=== PATIENT | male | born 2000 | race Hispanic/Latino ===

== ENCOUNTER 2020-12-26 12:08 | Emergency (ER) | payer OTHER ==
[2020-12-26 12:30] VITALS: BP 140/74; PULSE 60; O2SAT 100
[2020-12-26] MEDS ORDERED: Kenalog-40 IM ONE (12:44)
--- NOTE | 2020-12-26 12:53 | ERPHSYRPT ---
- History of Present Illness Time Seen by Provider: 12/26/20 12:16 Source: patient Exam Limitations: no limitations Patient Subjective Stated Complaint: . Triage Nursing Assessment: . Physician History: 20-year-old presented in the ER with chief complaint of rash on the both upper arms/hands, anterior chest and some on the face with some burning sensation and itching. Also having itching burning sensation in the eyes patient works as a forestry tree pruner and it had similar symptoms in the past with poison ruth. This has been going on for a week and progressively worsening. Denies any sore throat or difficulty breathing no fever or chills reported I have been using [id number] medication with no significant relief Timing/Duration: week(s) (1), constant, gradual onset, worse Quality: burning, itchy Severity: moderate Location: face, torso, hands, extremities Possible Causes: poison ruth Modifying Factors: Improves With: topical steriods. Worsens With: scratching Associated Symptoms: rash, No blisters, No difficulty breathing, No edema, No flushing, No headache, No hives, No nasal congestion, No paresthesia, No sore throat, No swelling/mass/lumps Allergies/Adverse Reactions: poison ruth extract Allergy (Verified 12/26/20 12:31) Rash poison oak extract Allergy (Verified 12/26/20 12:31) Rash poison sumac extract Allergy (Verified 12/26/20 12:31) Rash Hx Tetanus, Diphtheria Vaccination/Date Given: Yes Hx Influenza Vaccination/Date Given: Yes Hx Pneumococcal Vaccination/Date Given: No Immunizations Up to Date: Yes Travel Risk - International Travel Have you traveled outside of the country in past 3 weeks: No - Coronavirus Screening Are you exhibiting any of the following symptoms?: No Close contact with a COVID-19 positive Pt in past 14-21 Days: No - Vaccine Status Have you recieved a Covid-19 vaccination: No - Review of Systems Constitutional: No Symptoms Eyes: Itchy Ears, Nose, & Throat: No Symptoms Respiratory: No Symptoms Cardiac: No Symptoms Abdominal/Gastrointestinal: No Symptoms Genitourinary Symptoms: No Symptoms Musculoskeletal: No Symptoms Skin: Pruritis, Rash Neurological: No Symptoms Psychological: No Symptoms Immunological/Allergic: No Symptoms - Past Medical History Pertinent Past Medical History: Yes Respiratory History: Asthma Psycho-Social History: Bipolar, Depression Other Medical History: ADHD - Past Surgical History Past Surgical History: Yes Other Surgical History: wisdom teeth, heart surgery as - no issues since - Social History Smoking Status: Never smoker Exposure to second hand smoke: No Drug Use: none Patient Lives Alone: No - Nursing Vital Signs Nursing Vital Signs: Initial Vital Signs Temperature 98.7 F 12/26/20 12:24 Pulse Rate 60 12/26/20 12:24 Respiratory Rate 18 12/26/20 12:24 Blood Pressure 140/74 12/26/20 12:24 O2 Sat by Pulse Oximetry 100 12/26/20 12:24 Pain Scale Pain Intensity 0 - Physical Exam General Appearance: no apparent distress, alert Eye Exam: PERRL/EOMI, eyes nml inspection Ears, Nose, Throat Exam: normal ENT inspection, pharynx normal Neck Exam: normal inspection, non-tender, supple, full range of motion Respiratory Exam: normal breath sounds, lungs clear Cardiovascular Exam: regular rate/rhythm, normal heart sounds Extremity Exam: normal range of motion, tenderness Neurologic Exam: alert, oriented x 3, cooperative Skin Exam: normal color, rash (Multiple papular rash with few vesicles anterior forearms, anterior abdomen and few papules on the face/hands with itch acevedo.) SpO2: 100 Ordered Tests: Medication Summary Generic Name Dose Route Start Last Admin Trade Name Freq PRN Reason Stop Dose Admin Triamcinolone Acetonide 40 mg 12/26/20 12:44 Kenalog-40 IM 12/26/20 12:45 1XONLY ONE - Progress Progress: unchanged Progress Note: 12/26/20 12:47 Patient has been given Kenalog shot in here and will continue with topical steroids to go home along with calamine lotion. Outpatient follow-up recommended. Counseled pt/family regarding: diagnosis, need for follow-up - Departure Departure Disposition: Home Clinical Impression: Plant allergic contact dermatitis Condition: Stable Critical Care Time: No Referrals: BONILLA MCINTOSH MD [ACTIVE STAFF] - Follow Up with PCP/3 days Instructions: Poison Ruth, Poison [place], Poison [place] (DC) Additional Instructions: Follow-up with primary care physician for reevaluation. Use protective clothing's while in contact with plants. Return to ER for worsening rash or if to have difficulty breathing/swallowing/fever chills etc. Prescriptions: Betamet Diprop/Prop Gly [Betamethasone Dp Aug 0.05% Oin] 1 gm TP TID 7 Days #45 g
[2020-12-26] MEDS ORDERED: Kenalog-40 ONE (13:09)
== END 2020-12-26 14:00 | disposition home or self-care (01) ==
LOC: ED 12:08
DX: L23.9 Allergic contact dermatitis, unspecified cause (principal)
CPT/HCPCS: 96372; 99283; J3301

== ENCOUNTER 2021-04-24 14:48 | Emergency (ER) | payer OTHER ==
[2021-04-24 16:20] VITALS: O2SAT 98
--- NOTE | 2021-04-24 16:20 | ERPHSYRPT ---
- History of Present Illness Time Seen by Provider: 04/24/21 14:55 Source: patient Exam Limitations: no limitations Patient Subjective Stated Complaint: Pt cut right forearm on a nail or some wood that was hanging on the wall Triage Nursing Assessment: Pt brought self to the ER, vitals wnl, denies pain, 2cm laceration to right forearm, no bleeding, no other injuries Physician History: 20 years old healthy male presented in the ER with chief complaint of laceration right forearm from possibly hanging nail on the wall causing a superficial cut and the 1.25 cm laceration in the volar aspect of right forearm. Minimal dull aching pain. No bleeding or discharge. Nose swelling around. No injury anywhere else. Up-to-date with immunizations. Timing/Duration: today, constant, sudden, improved Quality: painful Severity: mild Location: extremities Associated Symptoms: denies symptoms Allergies/Adverse Reactions: poison anna extract Allergy (Verified 04/24/21 15:16) Rash poison oak extract Allergy (Verified 04/24/21 15:16) Rash poison sumac extract Allergy (Verified 04/24/21 15:16) Rash Home Medications: Amphetamine Sulfate [Evekeo Odt] 20 mg PO BID 04/24/21 [History] Hx Tetanus, Diphtheria Vaccination/Date Given: Yes Hx Influenza Vaccination/Date Given: Yes Hx Pneumococcal Vaccination/Date Given: No Immunizations Up to Date: Yes Travel Risk - International Travel Have you traveled outside of the country in past 3 weeks: No - Coronavirus Screening Are you exhibiting any of the following symptoms?: No Close contact with a COVID-19 positive Pt in past 14-21 Days: No - Vaccine Status Have you recieved a Covid-19 vaccination: No - Review of Systems Constitutional: No Symptoms Ears, Nose, & Throat: No Symptoms Respiratory: No Symptoms Cardiac: No Symptoms Abdominal/Gastrointestinal: No Symptoms Musculoskeletal: Injury Skin: Skin Lesions Neurological: No Symptoms Psychological: No Symptoms Endocrine: No Symptoms Hematologic/Lymphatic: No Symptoms Immunological/Allergic: No Symptoms - Past Medical History Pertinent Past Medical History: Yes Respiratory History: Asthma Psycho-Social History: Bipolar, Depression Other Medical History: ADHD - Past Surgical History Past Surgical History: Yes Other Surgical History: wisdom teeth, heart surgery as - no issues since - Social History Smoking Status: Never smoker Exposure to second hand smoke: No Drug Use: none Patient Lives Alone: No - Nursing Vital Signs Nursing Vital Signs: Initial Vital Signs Temperature 98.7 F 04/24/21 15:06 Pain Scale Pain Intensity 0 - Physical Exam General Appearance: no apparent distress Eye Exam: PERRL/EOMI Neck Exam: normal inspection, full range of motion Respiratory Exam: normal breath sounds, lungs clear Cardiovascular Exam: regular rate/rhythm, normal heart sounds Extremity Exam: other (Superficial cut linear right forearm from upper third lower third with 1.2 cm superficial laceration in the middle without active bleeding/spurting/oozing. Minimal tenderness.) Neurologic Exam: alert, oriented x 3, cooperative Skin Exam: normal color SpO2 Interpretation: normal SpO2: 98 O2 Delivery: Room Air Procedures - Laceration/Wound Repair Right Volar Arm Time of Procedure: 16:01 Wound Location: Right Wound Length (cm): 1.25 Wound's Depth, Shape: superficial, linear Wound Explored: clean Irrigated: Yes Hibiclens Prep: Yes Anesthesia: 1% Lidocaine Volume Anesthetic (ccs): 2 Wound Repaired With: sutures Suture Size/Type: 4-0, prolene Number of Sutures: 3 Sterile Dressing Applied?: Yes - Progress Progress: improved Progress Note: 04/24/21 16:19 Laceration is repaired. Recommend Tylenol ibuprofen. Discussed signs symptoms of infection needing return to ER which he seems understanding. Stable for discharge. Counseled pt/family regarding: diagnosis, need for follow-up - Departure Departure Disposition: Home Clinical Impression: Forearm laceration Qualifiers: Encounter type: initial encounter Laterality: right Qualified Code(s): S51.811A - Laceration without foreign body of right forearm, initial encounter Condition: Stable Critical Care Time: No Referrals: RAZIA SUAREZ DO [Primary Care Provider] - Follow Up with PCP/3 days Instructions: Laceration Repair With Stitches (DC), Wound Care (DC) Additional Instructions: Take Tylenol/ibuprofen as needed for pain. Keep it clean. Avoid exertional activities with right upper extremity. Look for signs of infection like increasing swelling redness discharge/difficulty movements at wrist/elbow, fever chills etc. Suture removal in 10 days.
== END 2021-04-24 16:46 | disposition home or self-care (01) ==
LOC: ED 14:48
DX: S51.811A Laceration without foreign body of right forearm, initial encounter (principal); W45.0XXA Nail entering through skin, initial encounter
CPT/HCPCS: 12001; 99283

== ENCOUNTER 2022-10-05 09:36 | Emergency (ER) | payer OTHER ==
[2022-10-05] MEDS ORDERED: TORAdol 30 mg Injection IM ONE (09:56)
[2022-10-05] MEDS ORDERED: TORAdol 30 mg Injection ONE (10:01)
--- NOTE | 2022-10-05 10:02 | ERPHSYRPT ---
- History of Present Illness Source: patient Exam Limitations: no limitations Patient Subjective Stated Complaint: PT HERE FOR MID TO LOWER BACK PAIN FOR A COUPLE DAYS, HE IS AN UNDERGROUND EXHIBITION ORGANISER. Triage Nursing Assessment: PT ALERT, RESP EASY, SKIN W/D/P. WALKED IN, MOVES ALL EXT WELL. NO EDEMA NOTED Physician History: 22 yo WM w lumbar pain x 5 days. Pain is 10 on scale and worse w movement. 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 Pain does not radiate. He denies dysuria/hematuria/acute injury/fever/abdominal pain/incontinence/lower extremity paralysis-decreased sensation. Timing/Duration: other (5 days) Method of Injury: unknown Quality: sharp Back Pain Location: lumbar spine Severity of Pain-Max: severe Severity of Pain-Current: severe Modifying Factors: Improves With: movement Associated Symptoms: denies symptoms Previous symptoms: no prior history Allergies/Adverse Reactions: poison anna extract Allergy (Verified 10/05/22 09:44) Rash poison oak extract Allergy (Verified 10/05/22 09:44) Rash poison sumac extract Allergy (Verified 10/05/22 09:44) Rash Home Medications: Amphetamine Sulfate [Evekeo Odt] 20 mg PO BID 04/24/21 [History] Hx Tetanus, Diphtheria Vaccination/Date Given: Yes Hx Influenza Vaccination/Date Given: Yes Hx Pneumococcal Vaccination/Date Given: No Immunizations Up to Date: Yes Travel Risk - International Travel Have you traveled outside of the country in past 3 weeks: No - Coronavirus Screening Are you exhibiting any of the following symptoms?: No - Vaccine Status Have you recieved a Covid-19 vaccination: No - Review of Systems Constitutional: No Symptoms Eyes: No Symptoms Ears, Nose, & Throat: No Symptoms Respiratory: No Symptoms Cardiac: No Symptoms Abdominal/Gastrointestinal: No Symptoms Genitourinary Symptoms: No Symptoms Skin: No Symptoms Neurological: No Symptoms Psychological: No Symptoms Endocrine: No Symptoms Hematologic/Lymphatic: No Symptoms Immunological/Allergic: No Symptoms - Past Medical History Pertinent Past Medical History: Yes Respiratory History: Asthma Musculoskeletal History: Degenerative Disk Disease Psycho-Social History: Bipolar, Depression Other Medical History: ADHD - Past Surgical History Past Surgical History: Yes Other Surgical History: wisdom teeth, heart surgery as - no issues since - Social History Smoking Status: Never smoker Exposure to second hand smoke: Yes Drug Use: none Patient Lives Alone: Yes - Nursing Vital Signs Nursing Vital Signs: Initial Vital Signs Temperature 97.0 F 10/05/22 09:45 Pulse Rate 77 10/05/22 09:45 Respiratory Rate 16 10/05/22 09:45 Blood Pressure 160/97 10/05/22 09:45 O2 Sat by Pulse Oximetry 99 10/05/22 09:45 Pain Scale Pain Intensity [Soft Tissue] 10 Pain Intensity 10 Hypertensive - Physical Exam General Appearance: no apparent distress Eye Exam: PERRL/EOMI, eyes nml inspection Ears, Nose, Throat Exam: normal ENT inspection, TMs normal, pharynx normal, moist mucous membranes Neck Exam: normal inspection, non-tender, supple, full range of motion, No meningismus, No mass, No Brudzinski, No Kernig's, No carotid bruit Respiratory Exam: normal breath sounds, lungs clear, airway intact, No respiratory distress Cardiovascular Exam: regular rate/rhythm, normal heart sounds, normal peripheral pulses, capillary refill <2 sec, No murmur Gastrointestinal Exam: soft, normal bowel sounds, No tenderness Back Exam: vertebral tenderness (Mid to lower L-spine TTP/No pain w stiff leg raises/Reflexes symmetric) Extremity Exam: normal inspection, normal range of motion Peripheral Pulses: carotid (R): 2+, carotid (L): 2+ Neurologic Exam: alert, oriented x 3, cooperative, commercial agent II-XII nml as tested, normal mood/affect, nml cerebellar function, nml station & gait, sensation nml, No motor deficits, No sensory deficit Skin Exam: normal color, warm, dry Lymphatic Exam: No adenopathy SpO2 Interpretation: normal SpO2: 99 O2 Delivery: Room Air - Course Nursing assessment & vital signs reviewed: Yes Ordered Tests: Medication Summary Discontinued Medications Generic Name Dose Route Start Last Admin Trade Name Micheleq PRN Reason Stop Dose Admin Ketorolac Tromethamine 60 mg 10/05/22 09:56 10/05/22 10:03 Ketorolac Tromethamine 30 Mg/Ml Inj IM 10/05/22 09:57 60 mg STAT ONE Administration Ketorolac Tromethamine Confirm 10/05/22 10:01 Ketorolac Tromethamine 30 Mg/Ml Inj Administered 10/05/22 10:02 Dose 60 mg .ROUTE .STK-MED ONE - Progress Progress Note: 10/05/22 11:27 Nursing note and vital signs reviewed No food or housing insecurities noted 10/05/22 11:28 60mg IM Toradol w mild improvement in pain Pt wo any alarming symptoms of paralysis/decreased sensation/incontinence Serial neuro exams WNL Pt asked about XR's of back, but I related that since there was no traumatic injury, XR's were not indicated. He was advised to follow up in the Ortho clinic for a possible MRI in the future if pain continued or if alarming symptoms started. Counseled pt/family regarding: diagnosis, need for follow-up Medical Desision Making - Risk of complications The pt has a mod risk of morbidity or mortality based on: Need for prescription drug management - Departure Departure Disposition: Home Clinical Impression: Lumbar strain Condition: Stable Critical Care Time: No Referrals: ORTHO - [facility] [employer]PERATOR [NON-STAFF PHY W/O PRIVILEGES] - Follow up/PCP as directed Instructions: Low Back Pain (DC) Additional Instructions: Rest/Heat/massage Norflex/Toradol as needed for pain Follow up in Ortho Clinic M-Fr from 8-10 if pain does not improve No lifting over 15 pounds until 10/10/22 Forms: Work/School Release Form Prescriptions: Orphenadrine Citrate 100 mg [Norflex 100 MG Tablet] 100 mg PO BIDPRN PRN #15 tab PRN Reason: Pain Ketorolac Trometh 10 mg Tab [TORAdol 10 MG TABLET] 10 mg PO TID PRN PRN #10 tablet PRN Reason: Pain
[2022-10-05 10:41] VITALS: BP 128/94; PULSE 78
[2022-10-05 11:32] VITALS: O2SAT 99
== END 2022-10-05 10:40 | disposition home or self-care (01) ==
LOC: ED 09:36
DX: S39.012A Strain of muscle, fascia and tendon of lower back, initial encounter (principal); Z79.899 Other long term (current) drug therapy; Z28.310 Unvaccinated for COVID-19
CPT/HCPCS: 96372; 99282; J1885